=== PATIENT | female | born 1960 | race Two or more races ===

== ENCOUNTER 2024-02-06 13:01 | Outpatient (RCR) | payer BC, SELFPAY ==
--- NOTE | 2024-02-06 14:32 | PT.ODS1RPT ---
PT OP Progress/Discharge Note Date of Service: 02/06/24 Progress Note/DC Note Progress Note/Discharge Note: DC Note Patient Information Visit Reasons: LOW BACK PAIN Service Continue Service or Discharge: Discharge Discharge Date: 02/06/24 Status Subjective: Temporary relief after therapy visits and with HEP Objective: See F/S for therex Trunk AROM: Flexion: 10 from floor Extension: 30% with LBP relief TTP: min of lower L/S Assessment: Pt has attended 9/12 therapy sessions with fair progress with goals. She has relief with HEP and is doing HEP. Pt has decreased TTP of L/S paraspinals from mod to min to meet that goal. Pt can sit for 30 minutes with low pain but it hurts after that. Progress with goals has plateaued. Plan: D/C with HEP Procedure Charges Therapeutic Exercise 30 minutes: Yes
== END 2024-03-03 23:59 | disposition home or self-care (01) ==
LOC: CPTX 13:01
PROVIDERS: PCP Psychiatry & Neurology Neurology with Special Qualifications in Child Neurology; Referring Provider Psychiatry & Neurology Neurology with Special Qualifications in Child Neurology; Visit Provider Psychiatry & Neurology Neurology with Special Qualifications in Child Neurology
DX: M54.16 Radiculopathy, lumbar region (principal)
CPT/HCPCS: 97110

== ENCOUNTER → 2024-03-14 | Outpatient (CLI) | payer BC, SELFPAY ==
[2024-03-14 16:14] LABS: Basophils # (Auto) 0.1 Thou/mm3 (0.0-0.2); Basophils % (Auto) 1 % (0-2.5); Eosinophils # (Auto) 0.2 Thou/mm3 (0.0-0.5); Eosinophils % (Auto) 4 % (0-10); Hematocrit 41.1 % (36.0-46.0); Hemoglobin 13.8 g/dL (12.0-16.0); Immature Granulocytes % (Auto) 0 % (0-0); Immature Granulocytes Auto 0.01 Thou/mm3 (0.00-0.00); Lymphocytes # (Auto) 1.3 Thou/mm3 (1.0-4.8); Lymphocytes % (Auto) 24 % (10-50); Mean Corpuscular HGB Conc 33.6 g/dl (31.0-37.0); Mean Corpuscular Hemoglobin 29.6 pg (25.0-35.0); Mean Corpuscular Volume 88 fL (80-100); Monocytes # (Auto) 0.4 Thou/mm3 (0.0-0.8); Monocytes % (Auto) 7 % (0-12); Neutrophils # (Auto) 3.4 Thou/mm3 (1.8-7.7); Neutrophils % (Auto) 64 % (37-80); Nucleated Red Blood Cell % 0 /100 WBC (0); Platelet Count 213 Thou/mm3 (140-440); RDW Standard Deviation 41.8 fL (36.4-46.3); Red Blood Count 4.66 Miln/mm3 (4.00-5.20); White Blood Count 5.3 Thou/mm3 (3.6-11.0)
[2024-03-14 16:40] LABS: Ferritin 69 ng/mL (7.3-270.7)
== END | disposition home or self-care (01) ==
LOC: COPL 14:19
PROVIDERS: PCP Physician Assistant; Referring Provider Internal Medicine Gastroenterology; Visit Provider Internal Medicine Gastroenterology
DX: R13.10 Dysphagia, unspecified (principal)
CPT/HCPCS: 36415; 82728; 85025

== ENCOUNTER → 2024-03-15 | Outpatient (CLI) | payer BC, SELFPAY ==
[2024-03-22 06:27] LABS: Helicobacter pylori Ag, Stool* NOT DETECTED (NOT DETECTED)
== END | disposition home or self-care (01) ==
LOC: SLDO 11:58
PROVIDERS: PCP Internal Medicine Gastroenterology; Referring Provider Internal Medicine Gastroenterology; Visit Provider Internal Medicine Gastroenterology
DX: R13.10 Dysphagia, unspecified (principal)
CPT/HCPCS: 87338

== ENCOUNTER 2024-05-08 10:35 | Day surgery (SDC) | payer BC, SELFPAY ==
[2024-05-07 15:15] VITALS: BMI 32.9
[2024-05-08] VITALS (9 sets, daily range): BP systolic 110–178; BP diastolic 74–102; PULSE 74–101; RESP 14–18; TEMP 36.6; O2SAT 93–100; BMI 32.9
[2024-05-08] MEDS: MIDAZOLAM INJ 1 MG/ML VIAL 2 ML (ASD USE ONLY) 2 MG IV (12:43)
[2024-05-08] MEDS: fentaNYL CIT INJ 50 mCg/ML AMP 2ML (ASD USE ONLY) IV (12:43)
[2024-05-08] MEDS: DiphenhydrAMINE INJ 50 MG/ML VIAL 25 MG IV (12:43)
== END 2024-05-08 13:30 | disposition home or self-care (01) ==
PROVIDERS: PCP Physician Assistant; Referring Provider Internal Medicine Gastroenterology; Visit Provider Internal Medicine Gastroenterology
PROC: (CPT 43239; principal; 2024-05-08 14:00)
DX: K21.00 Gastro-esophageal reflux disease with esophagitis, without bleeding (principal); K22.2 Esophageal obstruction; K29.60 Other gastritis without bleeding; K31.89 Other diseases of stomach and duodenum; K44.9 Diaphragmatic hernia without obstruction or gangrene
CPT/HCPCS: 43239; 43249; A4649; C1726; J1200; J2250; J3010

== ENCOUNTER → 2024-05-14 | Outpatient (CLI) | payer BC, SELFPAY ==
--- NOTE | 2024-05-14 07:30 | XR_ITS ---
Examination: MRI lumbar spine without contrast Date and time of exam: May 14, 2024 0748 hours INDICATIONS: Low back pain 6 years worse the last year radiating down the legs Technique: Multiple MRI axial and sagittal sections lumbar spine. Sagittal T2-weighted images, TR 3500, TE 118 T1 weighted transverse sections, TR 688 T8.5, T2-weighted sagittal sections T1 weighted sagittal sections TR 621, TE 30 T2 axial sections, TR 4, 190, TE 84. Findings: Adequate alignment lumbar vertebral bodies on the lateral view Disc desiccation lower 3 lumbar levels No lumbar fracture No spondylolisthesis L5-S1 2 mm right paracentral subarticular disc bulge contiguous with the right S1 nerve root L4-L5 4 mm central lumbar disc bulge L3-L4 foraminal disc bulges in the 3 to 4 mm range but no ganglionic compression L2-L3 no disc protrusion L1-L2 no disc protrusion IMPRESSION: L5-S1 2 mm right paracentral subarticular disc bulge contiguous with the right S1 nerve root L4-L5 4 mm central lumbar disc bulge
== END | disposition home or self-care (01) ==
LOC: SMRI 07:07
PROVIDERS: PCP Physician Assistant; Referring Provider Anesthesiology; Visit Provider Anesthesiology
DX: M51.369 Other intervertebral disc degeneration, lumbar region without mention of lumbar back pain or lower extremity pain (principal); M51.379 Other intervertebral disc degeneration, lumbosacral region without mention of lumbar back pain or lower extremity pain
CPT/HCPCS: 72148

== ENCOUNTER → 2024-05-30 | Outpatient (CLI) | payer BC, SELFPAY ==
[2024-05-30 10:20] LABS: Alanine Aminotransferase 44 U/L (10-49); Albumin, Serum 4.4 gm/dL (3.4-4.8); Alkaline Phosphatase 98 U/L (46-116); Aspartate Amino Transferase 31 U/L (0-34); Bilirubin,Direct 0.2 mg/dL (0.0-0.3); Bilirubin,Total 0.6 mg/dL (0.3-1.2); Total Protein 6.7 gm/dL (5.7-8.2)
== END | disposition home or self-care (01) ==
LOC: COPL 09:03
PROVIDERS: PCP Physician Assistant; Referring Provider Student in an Organized Health Care Education/Training Program; Visit Provider Student in an Organized Health Care Education/Training Program
DX: B35.9 Dermatophytosis, unspecified (principal)
CPT/HCPCS: 36415; 80076

== ENCOUNTER → 2024-06-21 | Outpatient (CLI) | payer BC, SELFPAY ==
[2024-06-21 11:37] LABS: Glucose Estimated Average 111 mg/dL (80-131); Hemoglobin A1C 5.5 % Hgb (4.8-6.0)
[2024-06-21 11:47] LABS: Alanine Aminotransferase 21 U/L (10-49); Albumin, Serum 4.2 gm/dL (3.4-4.8); Albumin/Globulin Ratio 2.1 (1.2-2.2); Alkaline Phosphatase 97 U/L (46-116); Anion Gap 8 (7-16); Aspartate Amino Transferase 23 U/L (0-34); BUN/Creatinine Ratio 30 Ratio (12-20); Bilirubin,Total 0.7 mg/dL (0.3-1.2); Blood Urea Nitrogen 18 mg/dL (9-23); Calcium 9.5 mg/dL (8.3-10.6); Calcium (Corrected) 9.5 mg/dL (8.5-10.1); Cardiac Risk Estimate 3.6 RATIO (3.7-5.6); Chloride 104 mMol/L (98-107); Cholesterol 199 mg/dL (132-200); Creatinine (Component) 0.6 mg/dL (0.6-1.3); Glucose 95 mg/dL (74-106); HDL Cholesterol 56 mg/dL (40-60); LDL Cholesterol,Calculated 125 mg/dL (0-130); Osmolality,Calculated 285 (275-295); Sodium 142 mMol/L (136-145); Total Protein 6.2 gm/dL (5.7-8.2); Triglycerides 88 mg/dL (30-150); eGFR > 60 See Note
== END | disposition home or self-care (01) ==
LOC: COPL 10:21
PROVIDERS: PCP Physician Assistant; Referring Provider Physician Assistant; Visit Provider Physician Assistant
DX: E78.5 Hyperlipidemia, unspecified (principal); R73.01 Impaired fasting glucose
CPT/HCPCS: 36415; 80053; 80061; 83036

== ENCOUNTER → 2024-07-09 | Outpatient (CLI) | payer BC, SELFPAY ==
--- NOTE | 2024-07-09 09:45 | XR_ITS ---
Examination: Screening digital mammography, bilateral Computer aided detection 3-D breast Tomosynthesis, bilateral Date and time of exam: 07/09/2024, 9:48 PM Comparisons: 06/09/2023 Indications: Screening Technique: Nonmagnified MLO, CC views of the breasts to been obtained, reconstructed from 3-D Tomosynthesis images. R2 computer aided detection program utilized for evaluation of suspicious masses and/or abnormal calcifications. 3-D Tomosynthesis images obtained. Technologist: Findings: There are scattered areas of fibroglandular density. Right retroareolar focal asymmetry. Otherwise, no evidence of abnormal masses or suspicious calcifications. Impression: Right retroareolar focal asymmetry. Spot compression views and possible ultrasound evaluation recommended. BI-RADS category 0: Incomplete assessment; need additional imaging evaluation
== END | disposition home or self-care (01) ==
LOC: CDIM 09:38
PROVIDERS: Referring Provider Physician Assistant; Visit Provider Physician Assistant
DX: Z12.31 Encounter for screening mammogram for malignant neoplasm of breast (principal); N64.89 Other specified disorders of breast
CPT/HCPCS: 77063; 77067

== ENCOUNTER → 2024-07-25 | Outpatient (CLI) | payer BC, SELFPAY ==
--- NOTE | 2024-07-25 09:15 | XR_ITS ---
Examination: Breast ultrasound, unilateral, right complete Date and time of exam: July 25, 2024 at 0916 hours INDICATIONS: Mammogram July 09, 2024 retroareolar focal asymmetry Technique: Real-time ridley scale ultrasonographic imaging performed right breast including all 4 quadrants as well as nipple retroareolar and axillary region. Findings: Retroareolar cyst 11 x 11 mm No solid nodules IMPRESSION: BI-RADS Category 2: Benign findings
--- NOTE | 2024-07-25 09:19 | XR_ITS ---
Examination: Bilateral hips, AP pelvis, 5 views Technique: AP, lateral views both hips, AP pelvis, 5 views Exam date and time: July 25, 2024 0940 hours INDICATIONS: Bilateral hip pain beginning 3 years ago FINDINGS: Mild bilateral hip osteoarthritis No right or left hip fracture or dislocation Bones of the pelvis intact No avascular necrosis IMPRESSION: Mild bilateral hip osteoarthritis
--- NOTE | 2024-07-25 09:45 | XR_ITS ---
Examination: Diagnostic digital mammography, unilateral, right Computer aided detection 3-D breast Tomosynthesis, unilateral Date and time of exam: July 25, 2024 0925 hours INDICATIONS: Mammogram July 09, 2024 retroareolar focal asymmetry right breast Technique: Nonmagnified MLO, CC views of the right breast have been obtained, reconstructed from 3-D Tomosynthesis images. R2 computer aided detection program utilized for evaluation of suspicious masses and/or abnormal calcifications. 3-D Tomosynthesis images obtained. Findings: Scattered areas of fibroglandular density Circumscribed mass 12 mm retroareolar region right breast likely corresponds to retroareolar cyst 11 mm cyst described on right breast sonogram today Impression: BI-RADS category 2: Benign findings Return to yearly follow-up mammography
== END | disposition home or self-care (01) ==
PROVIDERS: PCP Family Medicine; Referring Provider Physician Assistant; Visit Provider Physician Assistant
DX: R92.321 Mammographic fibroglandular density, right breast (principal); N64.89 Other specified disorders of breast; M16.0 Bilateral primary osteoarthritis of hip
CPT/HCPCS: 73522; 76641; 77061; 77065; G0279

== ENCOUNTER 2024-07-31 08:51 | Outpatient (AMB) | payer BC, SELFPAY ==
--- NOTE | 2024-07-31 09:12 | GYNCLNT_ITS ---
Vital Signs 07/31/24 09:13 Weight 82.611 kg Weight Measurement Method Standing Scale BP 149/87 H Blood Pressure Source Automatic Cuff Blood Pressure Location Left Upper Arm Position Sitting Respiration 18 Pulse 84 Pulse Source Monitor Temp 97.2 F Temp Source Oral Pulse Oximetry (%) 98 Oxygen Delivery Method Room Air Allergies/Home Meds Allergies & Medications Allergies No Known Allergies Allergy (Verified 07/31/24 09:21) Medication Reconciliation trospium 20 mg tablet 20 mg PO HS 11/22/22 [History Confirmed 07/31/24] cephalexin 250 mg tablet 250 mg PO HS 01/12/23 [History Confirmed 07/31/24] omeprazole 20 mg tablet,delayed release 20 mg PO QDAY 06/23/23 [History Confirmed 07/31/24] Intake Visit Data Collection New Patient or Established: Established Patient (seen at [facility] within 3 years) Reason for Visit:: Bladder inflammation, blood in the urine Seen by Clinical Staff ONLY (RN/MA): No Machine Adjuster Leader Required: Yes Machine Adjuster Leader's name/title: HOMA WADE / ENGINEER BOOSTER AND EXHAUSTER Do You Feel Safe at Home: Yes Authorities Contacted: N/A PCP or OBGYN visit in last 3 months: Yes Hx Now: No Are you currently on any form of Control: No Pain Present Currently: No Pain Scale Used: Elmore-Stearns/Numerical Pain scale:: 0 Smoking Status Smoking Status: Never smoker 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 1. Little interest or pleasure in doing things: not at all 2. Feeling down, depressed, or hopeless: not at all Total score: 0 PHQ-9 3. Trouble falling or staying asleep, or sleeping too much: Not at all 4. Feeling tired or having little energy: Not at all 5. Poor appetite or overeating: Not at all 6. Feeling bad about yourself - or that you are a failure or have let yourself or your family down: Not at all 7. Trouble concentrating on things, such as reading the newspaper or watching television: Not at all 8. Moving or speaking so slowly that other people could have noticed? - Or the opposite - being so fidgety or restless that you have been moving around a lot more than usual: not at all 9. Thoughts that you would be better off or of hurting yourself in some way: Not at all Total score: 0 If you checked off any problems, how difficult have these problems made it for you to do your work, take care of things at home, or get along with other people?: not difficult at all Source: Developed by Drs. Paxton Shearer, Janessa Raygoza, Hollis Giles and colleagues, with an educational deni from [employer]. Depression screen completed yes Social History Living Situation History Marital Status: Single Lives With: Family Housing: House Tobacco History Smoking Status: Never smoker Second Hand Smoke Exposure: No Alcohol History Alcohol Intake: Never Domestic Abuse History Do You Feel Safe at Home: Yes Past Medical History Past Medical History Have you ever been diagnosed with any of the following: Neurological Problems Seizures: No Cardiology Problems Hypercholesterolemia: Yes Congestive Heart Failure: No Respiratory Problems Chronic Obstructive Pulmonary Disease (COPD): No Stomache/Intestinal Problems Gastroesophageal Reflux Disease: Yes Obesity: Yes Genital/Urinary Problems Renal Disease: No Reproductive Problems Previous Pregnancies: Yes Musculoskeletal Problems Degenerative Disk Disease: Yes Endocrine Problems Diabetes Mellitus Type 1: No Diabetes Mellitus Type 2: No Blood Problems Anemia: No Other Problems Hospitalization: No Down Syndrome: No Shingles: No Falls: No Blood Transfusions: No Blood Transfusion Reaction: No Anesthesia Reactions: No MRSA: No Clostridium Difficile: No Cancer: No History of Present Illness [facility] Maty Voss, a 64-year-old postmenopausal female with two children, presents for gynecological evaluation following a referral from her primary care physician due to bladder inflammation and hematuria. The patient has been under the care of urologists in [place] who have prescribed medications that have helped reduce her urinary frequency, particularly at night. The patient denies any current gynecological symptoms or problems. She reports no pelvic pain or foul-smelling discharge. The urologists have performed a cystoscopy, which revealed bladder inflammation. They attempted to prescribe estrogen cream, but it was not covered by her insurance. The patient's obstetrical history includes two normal vaginal deliveries. She denies any previous surgeries on her uterus, ovaries, or other female organs, including C-sections. Obstetric History - GPAL: A0 L2 - history: - Two full-term pregnancies, both resulting in normal vaginal deliveries Medical History - Bladder inflammation - Hematuria Medications and Supplements - Estrogen cream - Prescribed by urologist but not covered by insurance - Unspecified medications from urologist - Helping with bladder inflammation and blood in urine - Reduced frequency of urination at night Social History - Children: Has 2 children - Obstetric History: Both children delivered vaginally Review of Systems Genitourinary: Negative for pelvic pain, foul-smelling discharge. Exam General General Appearance: alert, in no apparent distress and healthy appearing Head Head exam: atraumatic Neck Neck exam: Present normal inspection and trachea midline Chest Chest inspection: Present normal inspection and symmetric chest wall rise External exam: Present normal external exam; Absent tenderness Neuro Neurological exam: Present oriented X3 Psych Psychiatric exam: Present normal affect and normal mood Assessment & Plan Diagnosis / Problem List (1) Pelvic pain: Status: Acute (2) Dysuria: Status: Acute Plan Cris Voss, female patient, referred for bladder inflammation and hematuria, currently under urologist care. Bladder inflammation with hematuria Assessment: Patient was referred by primary care for bladder inflammation and hematuria. She is currently under the care of a urologist in [place] who has prescribed medications that have improved her symptoms, particularly reducing nocturia and urinary frequency. The urologist has performed cystoscopy, which revealed inflammation of the bladder. No gynecological symptoms or problems were reported by the patient. Plan: - Continue current treatment prescribed by urologist - Prescribe estrogen cream (previously not covered by insurance) - Perform pelvic ultrasound to evaluate uterus and ovaries - Follow up after ultrasound results are available Routine gynecological care Assessment: Patient's recent Pap smear was reported as normal (negative). She has no history of gynecological surgeries. Obstetric history includes two normal vaginal deliveries. Plan: - No immediate gynecological intervention required - Await results of pelvic ultrasound for further evaluation Office Procedures OB Clinic LOC & Office Proc's Nursing/Assessment Patient Status: Established Patient OB Clinic Nursing Assessment: BP Monitoring, Medication Reconciliation, Update PMH in EMR and Vital Signs OB Clinic Coordination of Care: Consent,records obtained, informed consent, Education Simp Pt/Fam, Lab and Imaging orders and Staff clarify orders Established Patient Charge Established Patient Point Assignment: 90 Established Patient Point Charge: EP Level 3 (80-115)
[2024-07-31 09:13] VITALS: BP 149/87; PULSE 84; RESP 18; TEMP 36.2; O2SAT 98
== END 2024-07-31 09:19 | disposition home or self-care (01) ==
LOC: HODSOBC 08:51
PROVIDERS: Supervising Provider Obstetrics & Gynecology; Visit Provider Obstetrics & Gynecology
DX: N30.91 Cystitis, unspecified with hematuria (principal)
CPT/HCPCS: 99213; G0463

== ENCOUNTER → 2024-08-14 | Outpatient (CLI) | payer BC, SELFPAY ==
--- NOTE | 2024-08-14 15:00 | XR_ITS ---
Examination: Pelvic ultrasound, transabdominal, complete Technique: Transabdominal ultrasound of the pelvis performed using grayscale imaging Date and time of exam: August 14, 2024 1509 hours INDICATIONS: Pelvic and perineal pain and dysuria history months FINDINGS: Uterus 6.5 cm endometrial stripe 0.5 cm No uterine mass Right ovary 2.4 cm arterial flow Left ovary 1.9 cm arterial flow IMPRESSION: Borderline thickened endometrial stripe, recommend transvaginal pelvic sonography follow-up
--- NOTE | 2024-08-14 15:00 | XR_ITS ---
Examination: Transvaginal ultrasound of the pelvis, complete Technique: Transvaginal sonographic images pelvis performed using ridley scale imaging Exam date and time: August 14, 2024 1516 hours INDICATIONS: History pelvic perineal pain and dysuria months FINDINGS: Uterus 7.1 cm endometrial sign 0.5 cm No uterine mass Right ovary 2.5 cm arterial flow small solid mass 12 x 8 x 12 mm as well as prominent fallopian tube Left ovary 2.5 cm arterial flow IMPRESSION: Recommend 6 month follow-up transvaginal study to confirm stability of borderline thickened endometrial stripe Recommend 6 month follow-up pelvic sonography to reassess solid nodule right ovary 12 x 8 x 12 mm and possible hydrosalpinx.
== END | disposition home or self-care (01) ==
PROVIDERS: PCP Physician Assistant; Referring Provider Obstetrics & Gynecology; Visit Provider Obstetrics & Gynecology
DX: R93.89 Abnormal findings on diagnostic imaging of other specified body structures (principal)
CPT/HCPCS: 76830; 76856

== ENCOUNTER 2024-08-21 14:45 | Outpatient (AMB) | payer BC, SELFPAY ==
[2024-08-21 15:25] VITALS: BP 133/80; PULSE 82; RESP 18; TEMP 36.2; O2SAT 98
--- NOTE | 2024-08-21 15:25 | GYNCLNT_ITS ---
Vital Signs 08/21/24 15:25 Weight 82.554 kg Weight Measurement Method Standing Scale BP 133/80 H Blood Pressure Source Automatic Cuff Blood Pressure Location Left Upper Arm Position Sitting Respiration 18 Pulse 82 Pulse Source Monitor Temp 97.2 F Temp Source Oral Pulse Oximetry (%) 98 Oxygen Delivery Method Room Air Allergies/Home Meds Allergies & Medications Allergies No Known Allergies Allergy (Verified 08/21/24 15:25) Medication Reconciliation trospium 20 mg tablet 20 mg PO HS 11/22/22 [History Confirmed 08/21/24] cephalexin 250 mg tablet 250 mg PO HS 01/12/23 [History Confirmed 08/21/24] omeprazole 20 mg tablet,delayed release 20 mg PO QDAY 06/23/23 [History Confirmed 08/21/24] estradiol 0.01% (0.1 mg/gram) vaginal cream 1 appful vaginal Q3D 90 days #42.5 grams 08/21/24 [Rx Confirmed 08/21/24] Intake Visit Data Collection New Patient or Established: Established Patient (seen at [facility] within 3 years) Reason for Visit:: FOLLOW UP Seen by Clinical Staff ONLY (RN/MA): Yes Fan Mail Clerk Required: Yes Fan Mail Clerk's name/title: HOMA WADE / PHARMACIST IN CHARGE Do You Feel Safe at Home: Yes Authorities Contacted: N/A PCP or OBGYN visit in last 3 months: Yes Date of Last PCP or OBGYN visit: 07/31/24 Hx Now: No Pain Present Currently: No Pain Scale Used: Elmore-Stearns/Numerical Pain scale:: 0 Smoking Status Smoking Status: Never smoker Filler Shredder Helper history Filler Shredder Helper History Menstrual regularity: regular Flow: normal Monthly: Yes Age at menarche: 14 Currently sexually active: No ROTOR WINDER: Past Medical History Past Medical History: No Hx Neurological Disorders, No Hx Cardiac Disorders, No Hx Cancer, No Hx Blood Disorders, No Hx Anemia, Yes Hx Gastrointestinal Disorders, No Hx Renal Disease, No Hx Diabetes Mellitus Type 1 and No Hx Diabetes Mellitus Type 2 Questionnaires Covid-19 Vaccine Questionnaire Has patient been vacinated for Covid-19 Have you been vacinated for Covid-19: Yes PHQ-9 PHQ-2 Over the last 2 weeks, how often have you been bothered by any of the following problems? 1. Little interest or pleasure in doing things: not at all 2. Feeling down, depressed, or hopeless: not at all Total score: 0 PHQ-9 3. Trouble falling or staying asleep, or sleeping too much: Not at all 4. Feeling tired or having little energy: Not at all 5. Poor appetite or overeating: Not at all 6. Feeling bad about yourself - or that you are a failure or have let yourself or your family down: Not at all 7. Trouble concentrating on things, such as reading the newspaper or watching television: Not at all 8. Moving or speaking so slowly that other people could have noticed? - Or the opposite - being so fidgety or restless that you have been moving around a lot more than usual: not at all 9. Thoughts that you would be better off or of hurting yourself in some way: Not at all Total score: 0 If you checked off any problems, how difficult have these problems made it for you to do your work, take care of things at home, or get along with other people?: not difficult at all Source: Developed by Drs. Paxton Shearer, Janessa Raygoza, Hollis Giles and colleagues, with an educational deni from [employer]. Depression screen completed yes Social History Living Situation History Lives With: Family Housing: House Tobacco History Smoking Status: Never smoker Second Hand Smoke Exposure: No Alcohol History Alcohol Intake: Never Domestic Abuse History Do You Feel Safe at Home: Yes History of Present Illness HPI Narrative Cris Voss is a 64-year-old postmenopausal female presenting for follow-up. She initially presented with inflammatory/irritable bowel and hematuria, for which she is under the care of a urologist in [place] who is treating her with anticholinergic medications. At her last visit, Ms. Voss denied any gynecologic symptoms or problems, including pelvic pain, foul smell, or discharge. She has a history of two full-term vaginal deliveries without complications. Ms. Voss underwent a full urological evaluation, including a cystoscopy, which revealed non-specific bladder inflammation. She was prescribed an estrogen cream but was unable to use it long-term due to insurance coverage issues. A routine pelvic ultrasound was ordered at her last visit for assessment purposes. Ms. Voss has not reported any new gynecologic concerns or changes in her overall health status since her last appointment. She has a history of inflammatory/irritable bowel and hematuria. A cystoscopy performed by her urologist revealed non-specific bladder inflammation. She is currently taking anticholinergic medications prescribed by her urologist for hematuria. An estrogen cream was prescribed again by the current physician, but she was previously unable to use it long-term due to insurance coverage issues. Her obstetric history includes 2 full-term vaginal deliveries without any complications (GTPAL: G2 T2 L2). Review of systems is negative for pelvic pain, foul smell, and discharge. Exam General General Appearance: alert, in no apparent distress and healthy appearing Head Head exam: atraumatic Neck Neck exam: Present normal inspection and trachea midline Chest Chest inspection: Present normal inspection and symmetric chest wall rise External exam: Present normal external exam; Absent tenderness Neuro Neurological exam: Present oriented X3 Psych Psychiatric exam: Present normal affect and normal mood Results Objective Imaging: - Pelvic and transvaginal ultrasound (08/14/2024): - Uterus: 71 cm with endometrial stripe of 0.5 cm - No uterine mass - Right ovary: 2.5 cm with atrial flow, small solid mass measuring 12 x 8 x 12 mm - Prominent fallopian tube - Left ovary: 2.5 cm Office Procedures OB Clinic LOC & Office Proc's Nursing/Assessment Patient Status: Established Patient OB Clinic Nursing Assessment: Medication Reconciliation, Update PMH in EMR and Vital Signs OB Clinic Coordination of Care: Complex Care and Chronic Disease 1-5, Consent,records obtained, informed consent, Lab and Imaging orders, Results/Orders obtained and Staff clarify orders Special Needs: Language special needs Established Patient Charge Established Patient Point Assignment: 90 Established Patient Point Charge: EP Level 3 (80-115) Assessment & Plan Diagnosis / Problem List (1) Postmenopausal atrophic vaginitis: Status: Acute (2) Dysuria: Status: Acute (3) Pelvic pain: Status: Acute (4) Ovarian mass: Status: Acute Plan Pelvic Ultrasound Findings Plan: - Order blood test to assess type of inflammation. - No surgical intervention or medication required at this time. - Reassure patient that findings do not appear serious. - Tumor markers to rule out malignancy risk Urinary Symptoms Plan: - Continue follow-up with urologist as scheduled. - Prescribe estrogen cream (same as previously prescribed by urologist). - Provide prescription printout to patient for pharmacy.
== END 2024-08-21 15:22 | disposition home or self-care (01) ==
LOC: HODSOBC 14:45
PROVIDERS: PCP Physician Assistant; Referring Provider Physician Assistant; Supervising Provider Obstetrics & Gynecology; Visit Provider Obstetrics & Gynecology
DX: N95.2 Postmenopausal atrophic vaginitis (principal); N83.8 Other noninflammatory disorders of ovary, fallopian tube and broad ligament
CPT/HCPCS: 99213; G0463

== ENCOUNTER → 2024-10-11 | Outpatient (CLI) | payer BC, SELFPAY ==
[2024-10-11 09:39] LABS: Glucose Estimated Average 105 mg/dL (80-131); Hemoglobin A1C 5.3 % Hgb (4.8-6.0)
[2024-10-11 09:56] LABS: Alanine Aminotransferase 24 U/L (10-49); Albumin, Serum 4.5 gm/dL (3.4-4.8); Albumin/Globulin Ratio 1.9 (1.2-2.2); Alkaline Phosphatase 98 U/L (46-116); Anion Gap 9 (7-16); Aspartate Amino Transferase 25 U/L (0-34); BUN/Creatinine Ratio 26 Ratio (12-20); Bilirubin,Total 0.6 mg/dL (0.3-1.2); Blood Urea Nitrogen 18 mg/dL (9-23); Calcium 9.4 mg/dL (8.3-10.6); Calcium (Corrected) 9.4 mg/dL (8.5-10.1); Carbon Dioxide 31.2 mMol/L (20.0-31.0); Cardiac Risk Estimate 3.5 RATIO (3.7-5.6); Chloride 105 mMol/L (98-107); Cholesterol 202 mg/dL (132-200); Creatinine (Component) 0.7 mg/dL (0.6-1.3); Globulin 2.4 gm/dL (2.3-3.5); Glucose 110 mg/dL (74-106); HDL Cholesterol 58 mg/dL (40-60); LDL Cholesterol,Calculated 121 mg/dL (0-130); Osmolality,Calculated 291 (275-295); Potassium 4.5 mMol/L (3.4-5.1); Sodium 145 mMol/L (136-145); Total Protein 6.9 gm/dL (5.7-8.2); Triglycerides 117 mg/dL (30-150); eGFR > 60 See Note
== END | disposition home or self-care (01) ==
LOC: COPL 08:51
PROVIDERS: PCP Family Medicine; Referring Provider Physician Assistant; Visit Provider Physician Assistant
DX: E78.5 Hyperlipidemia, unspecified (principal); R73.01 Impaired fasting glucose
CPT/HCPCS: 36415; 80053; 80061; 83036

== ENCOUNTER → 2024-11-06 | Outpatient (CLI) | payer BC, SELFPAY | END | disposition home or self-care (01) | LOC: SLDO 14:37 | PROVIDERS: PCP Family Medicine; Referring Provider Family Medicine; Visit Provider Family Medicine | DX: N39.0 Urinary tract infection, site not specified (principal) | CPT/HCPCS: 87086 ==

== ENCOUNTER → 2025-01-16 | Outpatient (CLI) | payer BC, SELFPAY | END | disposition home or self-care (01) | LOC: SLDO 15:00 | PROVIDERS: PCP Physician Assistant; Referring Provider Physician Assistant; Visit Provider Physician Assistant | DX: N39.0 Urinary tract infection, site not specified (principal) | CPT/HCPCS: 87086 ==

== ENCOUNTER → 2025-02-07 | Outpatient (CLI) | payer BC, SELFPAY ==
[2025-02-07 08:33] LABS: Basophils # (Auto) 0.0 Thou/mm3 (0.0-0.2); Basophils % (Auto) 1 % (0-2.5); Eosinophils # (Auto) 0.1 Thou/mm3 (0.0-0.5); Eosinophils % (Auto) 2 % (0-10); Hematocrit 41.5 % (36.0-46.0); Hemoglobin 13.9 g/dL (12.0-16.0); Immature Granulocytes Auto 0.01 Thou/mm3 (0.00-0.00); Lymphocytes # (Auto) 1.1 Thou/mm3 (1.0-4.8); Lymphocytes % (Auto) 21 % (10-50); Mean Corpuscular HGB Conc 33.5 g/dl (31.0-37.0); Mean Corpuscular Hemoglobin 29.0 pg (25.0-35.0); Mean Corpuscular Volume 87 fL (80-100); Monocytes # (Auto) 0.3 Thou/mm3 (0.0-0.8); Monocytes % (Auto) 6 % (0-12); Neutrophils # (Auto) 3.7 Thou/mm3 (1.8-7.7); Neutrophils % (Auto) 71 % (37-80); Nucleated Red Blood Cell # 0.00 Thou/mm3 (0.00-0.00); Nucleated Red Blood Cell % 0 /100 WBC (0); Platelet Count 230 Thou/mm3 (140-440); RDW Standard Deviation 43.1 fL (36.4-46.3); Red Blood Count 4.80 Miln/mm3 (4.00-5.20); White Blood Count 5.3 Thou/mm3 (3.6-11.0)
[2025-02-07 08:49] LABS: Collection Type, Urine Clean Catch
[2025-02-07 08:50] LABS: Glucose Estimated Average 120 mg/dL (80-131); Hemoglobin A1C 5.8 % Hgb (4.8-6.0)
[2025-02-07 08:58] LABS: Vitamin B12 657 pg/mL (211-911); Vitamin D 25 Hydroxy Total 25.4 ng/mL (7.3-40.2)
[2025-02-07 08:59] LABS: Alanine Aminotransferase 22 U/L (10-49); Albumin, Serum 4.7 gm/dL (3.4-4.8); Albumin/Globulin Ratio 2.4 (1.2-2.2); Alkaline Phosphatase 90 U/L (46-116); Anion Gap 9 (7-16); Aspartate Amino Transferase 24 U/L (0-34); BUN/Creatinine Ratio 23 Ratio (12-20); Bilirubin,Total 0.6 mg/dL (0.3-1.2); Blood Urea Nitrogen 14 mg/dL (9-23); Calcium 9.5 mg/dL (8.3-10.6); Calcium (Corrected) 9.5 mg/dL (8.5-10.1); Carbon Dioxide 27.8 mMol/L (20.0-31.0); Cardiac Risk Estimate 3.5 RATIO (3.7-5.6); Chloride 105 mMol/L (98-107); Cholesterol 201 mg/dL (132-200); Creatinine (Component) 0.6 mg/dL (0.6-1.3); Globulin 2.0 gm/dL (2.3-3.5); Glucose 104 mg/dL (74-106); HDL Cholesterol 58 mg/dL (40-60); LDL Cholesterol,Calculated 125 mg/dL (0-130); Osmolality,Calculated 283 (275-295); Potassium 4.5 mMol/L (3.4-5.1); Sodium 142 mMol/L (136-145); Thyroid Stimulating Hormone 2.28 uIU/mL (0.55-4.78); Total Protein 6.7 gm/dL (5.7-8.2); Triglycerides 91 mg/dL (30-150); eGFR > 60 See Note
[2025-02-07 09:14] LABS: Bacteria,Urine Rare; Bilirubin,Urine Negative (Negative); Blood,Urine 3+ (Negative); Clarity,Urine Clear (Clear/Hazy); Color,Urine Lt-Yellow (Lt Yel-Yel); Culture Indicated,Urine Not Indicated; Glucose, Urine Negative (Negative); Ketones,Urine Negative (Negative); Leukocyte Esterase,Urine Negative (Negative); Nitrite,Urine Negative (Negative); PH,Urine 6.0 (5.0-7.0); Protein,Urine Negative (Neg - Trace); RBC,Urine 87 /hpf (0-3); Specific Gravity,Urine 1.012 (1.001-1.035); Squamous Epithelial Cell,Urine 1 /hpf (0-5); Urobilinogen,Urine Negative mg/dL (0.0-1.0); WBC,Urine 3 /hpf (0-5)
== END | disposition home or self-care (01) ==
LOC: COPL 07:52
PROVIDERS: PCP Family Medicine; Referring Provider Physician Assistant; Visit Provider Physician Assistant
DX: E78.5 Hyperlipidemia, unspecified (principal); R73.01 Impaired fasting glucose; E55.9 Vitamin D deficiency, unspecified
CPT/HCPCS: 36415; 80053; 80061; 81001; 82306; 82607; 83036; 84443; 85025

== ENCOUNTER → 2025-02-08 | Outpatient (CLI) | payer BC, SELFPAY ==
[2025-02-13 07:42] LABS: Fecal Globin Result NOT DETECTED (NOT DETECTED)
== END | disposition home or self-care (01) ==
LOC: SLDO 10:23
PROVIDERS: PCP Family Medicine; Referring Provider Physician Assistant; Visit Provider Physician Assistant
DX: Z12.11 Encounter for screening for malignant neoplasm of colon (principal); E78.5 Hyperlipidemia, unspecified; R73.01 Impaired fasting glucose; E55.9 Vitamin D deficiency, unspecified
CPT/HCPCS: 82274; G0328